=== PATIENT | male | born 2005 | race Caucasian/White ===

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

== ENCOUNTER 2025-04-29 22:34 | Emergency (ER) | payer SELFPAY ==
[2025-04-29 22:34] VITALS: BP 117/73; PULSE 83; RESP 15; TEMP 36.2; O2SAT 100; BMI 20.1
--- NOTE | 2025-04-29 23:39 | ED.VIS.GI ---
HPI HPI - GI History of Present Illness Chief Complaint: Abd Pain Informant: patient Abdominal Pain/Flank Pain Onset: Yesterday Context: Gradual Onset Timing: Intermittent Quality: Cramping Location: Diffuse Worsened by: - (Worse in the morning) Relieved by: - (Drinking coconut water) Nausea/Vomiting/Emesis GI Symptom: Positive for Nausea; Negative for Vomiting Diarrhea/Melena/Hematochezia GI Symptom: Positive for Diarrhea; Negative for Melena or Hematochezia Stool Quality: Positive for Watery Associated Symptoms Associated Symptoms: Negative for Dysuria, Frequency or Hematuria Narrative Narrative: Patient presents with abdominal pain that began yesterday. Patient states it is worse when he wakes up in the morning. Patient describes his pain as cramping. Patient states it is diffuse across his entire abdomen. Patient admits to some nausea but denies any vomiting. Patient admits to some diarrhea. Patient states it is watery. Patient denies any melena or hematochezia. Patient denies any urinary complaints. Patient admits to some subjective fevers but denies any chills. Patient states he came to the emergency department earlier today for this. Patient states he left without being seen because it was too busy. [facility] Medical History Depression Home Medications ?Medication ?Instructions ?Recorded ?Last Taken ?Type ondansetron 4 mg disintegrating 4 mg PO Q8H PRN PRN Nausea #10 tabs 04/30/25 Unknown Rx tablet Allergy/AdvReac Type Severity Reaction Status Date / Time No Known Allergies Allergy Verified 04/29/25 22:34 Surgical History no surgical history no surgical history Social History Smoking Status: Current every day smoker tobacco type: cigarettes and e-cigarettes ROS ROS ED Constitutional Constitutional ED: Reports fever(s) and subjective; Denies chills Eyes Eyes: Denies blurry vision or change in vision ENT ENT ED: Denies rhinorrhea or sore throat Cardiovascular Cardiovascular: Denies chest pain or palpitations Respiratory/Chest Respiratory/Chest: Denies cough or dyspnea Gastrointestinal Gastrointestinal: Reports abdominal pain, diarrhea and nausea; Denies melena or vomiting Genitourinary Genitourinary ED: Denies dysuria or hematuria Musculoskeletal Musculoskeletal: Denies back pain or neck pain Integumentary Denies abscess or rash Neurologic Neurologic: Reports headache(s); Denies weakness Allergic/Immunologic Allergic/Immunologic ED: Denies mouth swelling or urticaria EXAM Physical Exam Const Vital Signs: 04/29/25 22:34 Temperature 97.2 F L Temperature Source Temporal Pulse Rate 83 Respiratory Rate 15 Blood Pressure 117/73 Blood Pressure Mean 87 Pulse Ox 100 Oxygen Delivery Method Room Air Positive well nourished and well developed General Appearance ED: well developed and NAD Neck supple and no JVD Resp normal respiratory effort and clear to auscultation bilaterally Cardio regular rate and regular rhythm GI non-distended and no masses Palpation: soft and tender epigastric, LLQ, RLQ, LUQ, RUQ, periumbilical and suprapubic Neuro CN's II-XII intact bilaterally, moves all extremities and no sensory deficits noted Sensorium / Orientation: alert Motor Exam: strength 5/5 throughout Psych mental status grossly normal MDM MDM MDM Narrative Medical decision making narrative: Differential diagnosis gastroenteritis, viral illness, electrolyte abnormality, dehydration, and urinary tract infection. CBC will be obtained to assess for leukocytosis and anemia. Basic metabolic profile will be obtained to assess for electrolyte abnormality renal function. Urinalysis will be obtained to assess for urinary tract infection and hematuria. Lab Data Attestation: I reviewed the patient's lab results. Lab results narrative: CBC was reviewed and was within normal limits. Basic metabolic profile was reviewed and was within normal limits. Urinalysis was reviewed. There is no evidence of urinary tract infection or hematuria. Labs: Laboratory Results - last 24 hr 04/30/25 04/30/25 00:00 00:06 WBC 5.8 RBC 5.14 Hgb 14.5 Hct 43.2 MCV 84.0 MCH 28.2 MCHC 33.6 RDW Std Deviation 38.5 RDW Coeff of Renae 12.5 Plt Count 170 MPV 10.3 Immature Gran % (Auto) 0.300 Neut % (Auto) 41.3 L Lymph % (Auto) 38.8 Forrest % (Auto) 14.2 H Eos % (Auto) 4.7 Baso % (Auto) 0.7 Absolute Neuts (auto) 2.4 Absolute Lymphs (auto) 2.24 Nucleated RBC % 0 Sodium 139 Potassium 3.9 Chloride 105 Carbon Dioxide 24.3 Anion Gap 10 BUN 12 Creatinine 1.00 Estim Creat Clear Calc 110.46 Est GFR (MDRD) Non-Af 109 BUN/Creatinine Ratio 12.2 Glucose 86 Calcium 9.2 Urine Color Yellow Urine Clarity Clear Urine pH 6.0 Ur Specific [place] 1.020 Urine Protein 15 H Urine Glucose (UA) Normal Urine Ketones Negative Urine Occult Blood 10 H Urine Nitrite Negative Urine Bilirubin Negative Urine Urobilinogen Normal Ur Leukocyte Esterase 25 H Urine RBC 0-5 SEEN Urine WBC 0-5 SEEN Ur Squamous Epith Cells 0-5 SEEN Urine Bacteria 2+ Urine Mucus 1+ Treatment and Re-Evaluation :: Patient was given IV fluids and Zofran. Patient is feeling better on reevaluation. Patient was advised of his findings. Patient was advised that this is most likely a viral illness. Patient was instructed to start with liquid diet and advance as tolerated. Patient was instructed to follow-up with his primary care physician in 5 to 7 days. Patient was instructed to return if worse in any way. Patient understood and was agreeable with the plan. All questions were answered. Discharge Plan Triage Chief Complaint: Abd Pain ED Provider: Myles Todd Dx/Rx/DC Orders Clinical Impression: Abdominal pain, Nausea, Diarrhea Instructions: ED Abdominal Pain Unkn Cause Male... Prescriptions: New ondansetron 4 mg tablet,disintegrating 4 mg PO Q8H PRN PRN (Reason: Nausea) Qty: 10 0RF Primary Care Provider: Care Physician,No Primary Referrals: Care Physician,No Primary [Primary Care Provider] - Vincent Milner, [employer] [[facility]] - 5-7 Days Print Language: Micronesian Disposition Disposition: Home, Self Care
[2025-04-30] MEDS: 0.9% Normal Saline (1000mL) 1,000 ML 999 ML IV (00:05)
[2025-04-30] MEDS: Ondansetron 4 MG/2 ML Vial IV (00:05)
[2025-04-30 00:16] LABS: Absolute Lymphocyte Count 2.24 X10^3/uL (0.83-4.51); Absolute Neutrophil Count 2.4 X10^3/uL (2.0-7.7); Basophil# 0.04 X10^3/uL; Basophil% 0.7 % (0-1); Eosinophil# 0.27 X10^3/uL; Eosinophils% 4.7 % (0-5); Hematocrit 43.2 % (40-54); Hemoglobin 14.5 g/dL (13.0-16.5); Lymphocyte # 2.24 X10^3/ul (0.83-4.51); Lymphocyte % 38.8 % (19-41); Mean Corp Hgb Conc 33.6 g/dL (32-36); Mean Corpuscular Hgb 28.2 pg (27.0-32.0); Mean Platelet Vol. 10.3 fl (6.2-12.0); Monocyte# 0.82 X10^3/uL; Monocyte% 14.2 % (0-10); NRBC Flagged by Analyzer 0 % (0-5); Neutrophil # 2.38 X10^3/uL (2.7-7.7); Neutrophil % 41.3 % (47-70); Platelet Count 170 K/mm3 (150-450); RBC Distribution Width CV 12.5 % (11.6-14.6); RBC Distribution Width SD 38.5 fl (35.1-43.9); Red Blood Count 5.14 M/mm3 (4.6-6.2); White Blood Count 5.8 K/mm3 (4.4-11.0)
--- OUTSIDE RECORDS SUMMARY | 2025-04-30 00:18 | XMS RPT_ITS | CCD ---
Author Organization [facility] PACKING ROOM SUPERVISOR [facility] Medications Current Medications Medication Drug Class(es) Dates Sig (Normalized) Sig (Original) amoxicillin 875 mg / clavulanate 125 mg oral tablet (1 source) Penicillin-class Antibacterial Start: 03-20-2022 take 1 tablet by mouth twice daily Amoxicillin-Pot Clavulanate Active 1 TABLET PO TWICE A DAY March 20, 2022 6:05am Problems Problem Classification Problem Date Documented Da te Episodic/Chronic Other upper respiratory infections (1 source) Pain in throat; Translations: [Acute pharyngitis, unspecified] Episodic Pleurisy; pneumothorax; pulmonary collapse (1 source) Mediastinal emphysema; 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] Episodic Residual codes; unclassified (1 source) Left against medical advice; Translations: [Procedure and treatment not carried out because of patient's decision for other reasons] Episodic Suicide and intentional self-inflicted injury (1 source) Suicidal thoughts; Translations: [Suicidal ideations] Episodic Results Test Name Value Interpretation Reference Range Facility Absolute lymphocyte counton 03-20-2022 Lymphocytes Auto (Unsp spec) [#/Vol] 2.51 10*3/uL 0.83-4.51 [facility] Work Phone: Basic Metabolic Profile (BMP )on 03-20-2022 BUN/CRE 13.1 RATIO Normal 10-20 [facility] Comment on above: Performed By: #### L 500.2500, L100.0100 #### [facility] [address] [place], [address] CA,Total 9.2 mg/dL Normal 8.5-10.1 [facility] Comment on above: Performed By: #### L 500.2500, L100.0100 #### [facility] [address] [place], [address] Chloride [Moles/Vol] 109 mmol/L High 98-107 [facility] Comment on above: Performed By: #### L 500.2500, L100.0100 #### [facility] [address] [place], [address] CO2 [Moles/Vol] 28.0 mmol/L Normal 21.0-32.0 [facility] Comment on above: Performed By: #### L 500.2500, L100.0100 #### [facility] [address] [place], [address] Creatinine [Mass/Vol] 1.07 mg/dL Normal 0.70-1.30 [facility] Comment on above: Result Comment: The validity of the calculated GFR GFRAA in patients over 70 years has not been determined. Clinical correlation is essential. Performed By: #### L 500.2500, L100.0100 #### [facility] [address] [place], [address] ECRCL 99.11 ml/min Normal [facility] Comment on above: Performed By: #### L 500.2500, L100.0100 #### [facility] [address] [place], [address] EST GFR - AA 114 mL/min Normal >60 [facility] Comment on above: Result Comment: Afri can Somali GFR Calc Performed By: #### L 500.2500, L100.0100 #### [facility] [address] [place], [address] GAP 4 Low 5-15 [facility] Comment on above: Performed By: #### L 500.2500, L100.0100 #### [facility] [address] [place], [address] GFR/1.73 sq M.predicted among non-blacks MDRD (S/P/Bld) [Vol rate/Area] 95 mL/min/{1.73_m2} Normal >60 [facility] Comment on above: Result Comment: Non- GFR Calc Performed By: #### L 500.2500, L100.0100 #### [facility] [address] [place], [address] Glucose [Mass/Vol] 92 mg/dL Normal 74-106 [facility] Comment on above: Performed By: #### L 500.2500, L100.0100 #### [facility] [address] [place], [address] Potassium [Moles/Vol] 3.7 mmol/L Normal 3.5-5.1 [facility] Comment on above: Performed By: #### L 500.2500, L100.0100 #### [facility] [address] [place], [address] Sodium [Moles/Vol] 141 mmol/L Normal 136-145 [facility] Comment on above: Performed By: #### L 500.2500, L100.0100 #### [facility] [address] [place], [address] Urea nitrogen [Mass/Vol] 14 mg/dL Normal 7-18 [facility] Comment on above: Performed By: #### L 500.2500, L100.0100 #### [facility] [address] [place], [address] Basophil percentageon 2021 Basophils/100 WBC (Bld) 0.2 % 0-1 [facility] Work Phone: Chloride [Moles/Vol] 109 mmol/L 98-107 [facility] Work Phone: Eosinophils/100 WBC (Bld) 1.0 % 0-5 [facility] Work Phone: Glucose [Mass/Vol] 92 mg/dL 74-106 [facility] Work Phone: Neutrophils (Bld) [#/Vol] 8.3 10*3/uL 2.0-7.7 [facility] Work Phone: [phone] Neutrophils/100 WBC (Bld) 68.1 % 47-70 [facility] Work Phone: [phone] Potassium [Moles/Vol] 3.7 mmol/L 3.5-5.1 [facility] Work Phone: [phone] Sodium [Moles/Vol] 141 mmol/L 136-145 [facility] Work Phone: [phone] WBC (Bld) [#/Vol] 12.2 10*3/uL 4.4-11.0 [facility] Work Phone: Blood erythrocytes count (nu mber/volume)on 03-20-2022 RBC (Bld) [#/Vol] 4.68 10*6/uL 4.6-6.2 [facility] Work Phone: Blood hemoglobin measurement (mass/volume)on 03-20-2022 Hemoglobin (Bld) [Mass/Vol] 13.7 g/dL 13.0-16.5 [facility] Work Phone: [phone] Blood lymphocytes/100 leukoc yteson 03-20-2022 Lymphocytes/100 WBC (Bld) 20.5 % 19-41 [facility] Work Phone: [phone] Blood monocytes/100 leukocyt eson 03-20-2022 Monocytes/100 WBC (Bld) 9.9 % 0-10 [facility] Work Phone: [phone] Blood platelet mean volumeon 03-20-2022 Platelet mean volume (Bld) [Entitic vol] 10.0 fL 6.2-12.0 [facility] Work Phone: CBC W/Diff, Automatedon 03-06 Absolute Lymph 2.51 X10 3/uL Normal 0.83-4.51 [facility] Comment on above: Performed By: #### L 500.2500, L100.0100 #### [facility] [address] [place], [address] Absolute Neut 8.3 X10 3/uL High 2.0-7.7 [facility] Comment on above: Performed By: #### L 500.2500, L100.0100 #### [facility] [address] [place], [address] Basophils/100 WBC (Bld) 0.2 % Normal 0-1 [facility] Comment on above: Performed By: #### L 500.2500, L100.0100 #### [facility] [address] [place], [address] Eosinophils/100 WBC (Bld) 1.0 % Normal 0-5 [facility] Comment on above: Performed By: #### L 500.2500, L100.0100 #### [facility] [address] [place], [address] Erythrocyte distribution width (RBC) [Ratio] 12.2 % Normal 11.6-14.6 [facility] Comment on above: Performed By: #### L 500.2500, L100.0100 #### [facility] [address] [place], [address] Hematocrit (Bld) [Volume fraction] 40.7 % Normal 40-54 [facility] Comment on above: Performed By: #### L 500.2500, L100.0100 #### [facility] [address] [place], [address] Hemoglobin (Bld) [Mass/Vol] 13.7 g/dL Normal 13.0-16.5 [facility] Comment on above: Performed By: #### L 500.2500, L100.0100 #### [facility] [address] [place], [address] IG% 0.300 Normal 0.0-0.9 [facility] Comment on above: Result Comment: IG% - Immature Granulocytes (promyelocytes, myelocytes and metamyelocytes) > 1% indicates that a LEFT SHIFT is Present. Performed By: #### L 500.2500, L100.0100 #### [facility] [address] [place], [address] Lymphocytes/100 WBC (Bld) 20.5 % Normal 19-41 [facility] Comment on above: Performed By: #### L 500.2500, L100.0100 #### [facility] [address] [place], [address] MCH (RBC) [Entitic mass] 29.3 pg Normal 27.0-32.0 [facility] Comment on above: Performed By: #### L 500.2500, L100.0100 #### [facility] [address] [place], [address] MCHC (RBC) [Mass/Vol] 33.7 g/dL Normal 32-36 [facility] Comment on above: Performed By: #### L 500.2500, L100.0100 #### [facility] [address] [place], [address] MCV (RBC) [Entitic vol] 87.0 fL Normal 80-94 [facility] Comment on above: Performed By: #### L 500.2500, L100.0100 #### [facility] [address] [place], [address] Monocytes/100 WBC (Bld) 9.9 % Normal 0-10 [facility] Comment on above: Performed By: #### L 500.2500, L100.0100 #### [facility] [address] [place], [address] Neutrophils/100 WBC (Bld) 68.1 % Normal 47-70 [facility] Comment on above: Performed By: #### L 500.2500, L100.0100 #### [facility] [address] [place], [address] Nucleated RBC (Bld) [#/Vol] 0 10*3/uL Normal 0-5 [facility] Comment on above: Performed By: #### L 500.2500, L100.0100 #### [facility] [address] [place], [address] Platelet mean volume (Bld) [Entitic vol] 10.0 fL Normal 6.2-12.0 [facility] Comment on above: Performed By: #### L 500.2500, L100.0100 #### [facility] [address] [place], [address] Platelets (Bld) [#/Vol] 196 10*3/uL Normal 150-450 [facility] Comment on above: Performed By: #### L 500.2500, L100.0100 #### [facility] [address] [place], [address] RBC (Bld) [#/Vol] 4.68 10*6/uL Normal 4.6-6.2 [facility] Comment on above: Performed By: #### L 500.2500, L100.0100 #### [facility] [address] [place], [address] RDW SD 38.7 fl Normal 35.1-43.9 [facility] Comment on above: Performed By: #### L 500.2500, L100.0100 #### [facility] [address] [place], [address] WBC (Bld) [#/Vol] 12.2 10*3/uL High 4.4-11.0 [facility] Comment on above: Performed By: #### L 500.2500, L100.0100 #### [facility] [address] [place], [address] Determination of erythrocyte mean corpuscular volume (MCV)on 03-20-2022 MCV (RBC) [Entitic vol] 87.0 fL 80-94 [facility] Work Phone: Emergency Department Summary on 03-20-2022 Emergency Department Summary [facility] Medical Records Department [address] [place] [address] Emergency Department Summary 03/20/22 MR#: [id number] Acct: [id number] Name: KAMALJIT CORREA Rep #: [id number] : 2005 17 From: Miguelito Stringer MD PCP: Care Physician,No Primary Status:REG ER Location: ED HPI History of Present Illness Chief Complaint: Sore Throat Informant: patient Narrative Narrative: Patient complains of a sore throat for couple hours. This occurred a little bit after eating some pork. That he does not remember anything causing problems while he ate. He is able to swallow. He has no trouble breathing. He had no fevers chills sweats. He took a picture in his throat and he thought he saw something that was different but he cannot explain it. He wanted to come in to make sure he did not do damage to himself. Right putting his finger in his throat to get hold of what ever he saw or felt. He did then try to force himself to gag and vomit to bring up what ever might have been there. He has no medical problems. [facility] Medical History Depression Home Medications amoxicillin-pot clavulanate 1 tab PO BID #20 tab 03/20/22 [Rx Last Taken Unknown] Allergy/AdvReac Type Severity Reaction Status Date / Time No Known Allergies Allergy Verified 03/20/22 00:58 Social History Smoking Status: Current every day smoker tobacco type: cigarettes ROS ROS ED Constitutional Constitutional ED: Denies chills or fever(s) ENT ENT ED: Reports sore throat; Denies ear pain or rhinorrhea Cardiovascular Cardiovascular: Denies chest pain or palpitations Respiratory/Chest Respiratory/Chest: Denies cough or dyspnea Gastrointestinal Gastrointestinal: Denies nausea or vomiting Genitourinary Genitourinary ED: Denies dysuria Musculoskeletal Musculoskeletal: Reports other Details: Sore throat but no real neck pain. ; Denies back pain or neck pain Integumentary Denies rash Endocrine Endocrinology: Denies polydipsia or polyuria Allergic/Immunologic Allergic/Immunologic ED: Denies urticaria EXAM Physical Exam Const Vital Signs: 03/20/22 00:55 03/20/22 05:59 Temperature 97.9 F Temperature Source Temporal Pulse Rate 84 60 Respiratory Rate 18 18 Blood Pressure 147/67 H 123/61 H Blood Pressure Mean 93 81 Pulse Ox 96 99 Oxygen Delivery Method Room Air Positive well nourished and well developed Constitutional Narrative: Patient sitting in the bed texting on his phone. He looks very comfortable. Breathing is easy and unlabored. General Appearance ED: well developed and NAD HEENT HEENT Narrative: Voice is normal. Swallowing mechanism is normal. Patient is opens very widely. I can see a tonsil lift in the upper right tonsil. I am not able to remove this with a Q-tip easily. There is no exudate. I do have the ability to visualize his epiglottis but it looks normal. I see no foreign body anywhere. There is no bleeding. No swelling. No asymmetry. Negative for trauma Eyes PERRL Neck no lymphadenopathy, supple and no JVD Neck Narrative: No tenderness with palpation around the neck. Chest Wall inspection of chest normal Resp normal respiratory effort and clear to auscultation bilaterally GI normal to inspection, nondistended, normoactive bowel sounds and non-tender Palpation: soft Neuro oriented x3 Sensorium / Orientation: alert Psych mental status grossly normal Skin no rashes or lesions noted MDM MDM MDM Narrative Medical decision making narrative: Patient's x-ray shows prevertebral soft tissue air. Patient denies any forceful vomiting retching or any foreign body in his mouth. He he does vape on occasion. He denies trauma. He states he is feeling a little better. But with this finding we did do further evaluation. He had a white count of about 12.2. Remainder of labs show no marked abnormalities. CT scan did show some extensive soft tissue air in the prevertebral deeper aspirates from retropharyngeal down to the upper mediastinum. It is unclear the exact origin of this. He does not present the typical clinical picture of Boerhaave syndrome. However we did treat with antibiotics. I explained the findings to the patient. I did talk to her water service supervisor. We agree that this patient may need to successfully be observed but would likely need further esophageal studies and potential access to CT surgery. I explained this to the patient. I then called [facility] and gave them the information. We are waiting the calls back. I asked planed the symptoms in more detail to the patient and why we were waiting. He was okay with this plan. A couple hours into this, he then told the nurse that he cannot be transferred cecile (more content not included)... Normal [facility] Hematocrit Auto (Bld) [Volum e fraction]on 03-20-2022 Hematocrit (Bld) [Volume fraction] 40.7 % 40-54 [facility] Work Phone: Laboratory - Chemistry and C hemistry - challengeon 03-20-2022 CO2 [Moles/Vol] 28.0 mmol/L 21.0-32.0 [facility] Work Phone: Urea nitrogen/Creatinin e [Mass ratio] 13.1 mg/mg 10-20 [facility] Work Phone: Laboratory - Hematology and Cell countson 03-20-2022 Erythrocyte distribution width (RBC) [Entitic vol] 38.7 fL 35.1-43.9 [facility] Work Phone: Erythrocyte distribution width (RBC) [Ratio] 12.2 % 11.6-14.6 [facility] Work Phone: Immature granulocytes/100 WBC (Bld) 0.300 % 0.0-0.9 [facility] Work Phone: Comment on above: IG% - Immature Granu locytes (promyelocytes, myelocytes and metamyelocytes) > 1% indicates that a LEFT SHIFT is Present. MCH (RBC) [Entitic mass] 29.3 pg 27.0-32.0 [facility] Work Phone: Nucleated RBC/100 WBC (Bld) [Ratio] 0 % 0-5 [facility] Work Phone: MCHC Auto (RBC) [Mass/Vol]on 03-20-2022 MCHC (RBC) [Mass/Vol] 33.7 g/dL 32-36 [facility] Work Phone: Neck for Soft Tissueon 03-20 Neck for Soft Tissue [facility] Services [address] [place] [address] Neck for Soft Tissue MR#: [id number] Acct: [id number] Name: KAMALJIT CORREA Rep #: [id number] : 2005 M 17 From: Perry Carlson MD PCP: Care Physician,No Primary Status: REG ER Study: Neck for Soft Tissue Date of Exam: 03/20/22 Exam# [id number] Ordering Dr: Miguelito Stringer MD STUDY: X-RAY - SOFT TISSUE NECK REASON FOR EXAM: Male, 17 years old. sore throat TECHNIQUE: 2 view(s) of the neck were obtained. COMPARISON: None. FINDINGS: Please see the impression. RAD/Neck for Soft Tissue IMPRESSION: Prevertebral soft tissue air/gas. In the absence of history of recent trauma, the possibility of an anaerobic infections should be considered. No radiopaque foreign body. Intact cervical vertebrae. Electronically Signed: Perry Carlson MD at 1:46 EDT Reading Location ID and State: [facility] / [place] Tel , Service support , CC: Dr. Miguelito Stringer MD; No Primary Care Physician Assistant Front End Manager: Signed Normal [facility] No Panel Informationon 03-20 Estimated Creatinine Clearance Calc 99.11 ml/min [facility] Work Phone: Estimated GFR (MDRD) Amer 114 mL/min >60 [facility] Work Phone: Comment on above: GFR Calc Estimated GFR (MDRD) Non-Af Amer 95 mL/min >60 [facility] Work Phone: Comment on above: Non- GFR Calc Platelets bldon 03-20-2022 Platelets (Bld) [#/Vol] 196 10*3/uL 150-450 [facility] Work Phone: Serum or plasma calcium leticia urement (mass/volume)on 03-20-2022 Calcium [Mass/Vol] 9.2 mg/dL 8.5-10.1 [facility] Work Phone: Serum or plasma creatinine m easurement (mass/volume)on 03-20-2022 Creatinine [Mass/Vol] 1.07 mg/dL 0.70-1.30 [facility] Work Phone: Comment on above: The validity of the calculated GFR & GFRAA in patients over 70 years has not been determined. Clinical correlation is essential. Serum or plasma urea nitroge n measurement (mass/volume)on 03-20-2022 Urea nitrogen [Mass/Vol] 14 mg/dL 7-18 [facility] Work Phone: Soft Tissue Neck WITH Contra ston 03-20-2022 Soft Tissue Neck WITH Contrast [facility] Services [address] [place] [address] Soft Tissue Neck WITH Contrast MR#: [id number] Acct: [id number] Name: KAMALJIT CORREA Rep #: [id number] : 2005 M 17 From: Perry Carlson MD PCP: Care Physician,No Primary Status: REG ER Study: Soft Tissue Neck WITH Contrast Date of Exam: 0 03/20/22 Exam# [id number] Ordering Dr: Miguelito Stringer MD STUDY: CT SOFT TISSUE NECK WITH CONTRAST REASON FOR EXAM: Male, 17 years old. pain RADIATION DOSAGE (If Supplied By Facility): CTDIvol = ( 12.72 ) mGy, DLP = ( 416.17 ) mGycm TECHNIQUE: The patient was scanned in a multi-detector CT scanner. High resolution transaxial imaging was performed following intravenous administration of IV 75mL Isovue-300. Sagittal and coronal images were reconstructed. Individualized dose optimization techniques were used for this CT. COMPARISON: None. FINDINGS: Visualized brain parenchyma is unremarkable. The bilateral globes are intact. Polyps versus retention cysts noted in the bilateral maxillary sinuses. Mild mucoperiosteal thickening of the bilateral ethmoid air cells is seen. The bilateral parotid and submandibular glands are intact. The thyroid is homogeneous. No cervical adenopathy is seen. There is extensive deep soft tissue emphysema in the retropharyngeal space and extending to the upper mediastinum. The possibility of esophageal perforation cannot be excluded. Upper lungs are clear. There is no apical pneumothorax. The bones are intact. CT/Soft Tissue Neck WITH Contrast IMPRESSION: Extensive deep soft tissue emphysema in the retropharyngeal space and extending to the upper mediastinum. The possibility of esophageal perforation cannot be excluded. Esophagram may be performed if clinically indicated. Electronically Signed: Perry Carlson MD at 3:00 EDT Reading Location ID and State: [facility] / [place] Tel , Service support , CC: Dr. Miguelito Stringer MD; No Primary Care Physician Assistant Front End Manager: Signed Normal [facility] Thin prep Papanicolaou smear with manual screeningon 03-20-2022 Thin prep Papanicolaou smear with manual screening 03-20 [facility] Work Phone: 12 Lead EKGon 03-29-2021 12 Lead EKG [facility] Services [address] [place] [address] 12 Lead EKG 03/29/21 1141 MR#: [id number] Acct: [id number] Name: KAMALJIT CORREA Rep #: [id number] : 2005 16 From: Thomas De Oliveira MD Attending Dr: Status: DEP ER Ordering Dr: Renan David MD Date: 03/29/21 Location: ED Sex: M C Admitted: Test Reason : Blood Pressure : / mmHG Vent. Rate : 046 BPM Atrial Rate : 046 BPM P-R Int : 134 ms QRS Dur : 102 ms QT Int : 456 ms P-R-T Axes : 042 067 049 degrees QTc Int : 399 ms Sinus bradycardia RSR' or QR pattern in V1 suggests right ventricular conduction delay Borderline ECG Confirmed by ALVINO COKER, THOMAS ([id number]), graphics editor FAYE CALDWELL ([id number]) on 03/31/2021 9:36:36 AM Referred By: LUIS F Confirmed By:THOMAS DE OLIVEIRA MD 03/31/21 0936 Date Thomas De Oliveira MD CC: No Primary Care Physician; Dr. Renan David MD Signed Normal [facility] Alcohol, Blood (Medical)-Ser umon 03-29-2021 SERUM ETOH < 3.0 Normal [facility] Comment on above: Result Comment: The serum:whole blood ethanol ratio is approximately 1.14 and varies slightly with hematocrit. Medical Alcohol reference interval and critical value in non-tolerant individuals; 50 - 100 Impairment 100 Intoxication 100 - 250 Severe Poisoning 250 - 400 Deep/possible fatal coma Performed By: #### L 501.9100, L505.5000, L500.2500, L100.0100 #### [facility] [address] [place], [place], [id number] Basic Metabolic Profile (BMP )on 03-29-2021 BUN/CRE 14.4 RATIO Normal 10-20 [facility] Comment on above: Performed By: #### L 501.9100, L505.5000, L500.2500, L100.0100 ####[facility] [id number] [place], [address] CA,Total 9.0 mg/dL Normal 8.5-10.1 [facility] Comment on above: Performed By: #### L 501.9100, L505.5000, L500.2500, L100.0100 ####[facility] [id number] [place], [address] Chloride [Moles/Vol] 109 mmol/L High 98-107 [facility] Comment on above: Performed By: #### L 501.9100, L505.5000, L500.2500, L100.0100 ####[facility] [id number] [place], [address] CO2 [Moles/Vol] 27.0 mmol/L Normal 21.0-32.0 [facility] Comment on above: Performed By: #### L 501.9100, L505.5000, L500.2500, L100.0100 ####[facility] [id number] [place], [address] Creatinine [Mass/Vol] 1.04 mg/dL Normal 0.70-1.30 [facility] Comment on above: Result Comment: The validity of the calculated GFR GFRAA in patients over 70 years has not been determined. Clinical correlation is essential. Performed By: #### L 501.9100, L505.5000, L500.2500, L100.0100 ####[facility] [id number] [place], [address] ECRCL 107.16 ml/min Normal [facility] Comment on above: Performed By: #### L 501.9100, L505.5000, L500.2500, L100.0100 ####[facility] [address] [place], [address] EST GFR - AA 120 mL/min Normal >60 [facility] Comment on above: Result Comment: Afri can Somali GFR Calc Performed By: #### L 501.9100, L505.5000, L500.2500, L100.0100 ####[facility] [address] [place], [address] GAP 5 Normal 5-15 [facility] Comment on above: Performed By: #### L 501.9100, L505.5000, L500.2500, L100.0100 ####[facility] [address] [place], [address] GFR/1.73 sq M.predicted among non-blacks MDRD (S/P/Bld) [Vol rate/Area] 99 mL/min/{1.73_m2} Normal >60 [facility] Comment on above: Result Comment: Non- GFR Calc Performed By: #### L 501.9100, L505.5000, L500.2500, L100.0100 ####[facility] [id number] [place], [address] Glucose [Mass/Vol] 102 mg/dL Normal 74-106 [facility] Comment on above: Result Comment: Fast ing Glucose result from 100 to 125 mg/dL suggests IMPAIRED HOMEOSTASIS per A.D.A. criteria. Please note revised GLUCOSE reference range effective 2017. Performed By: #### L 501.9100, L505.5000, L500.2500, L100.0100 ####[facility] [id number] [place], [address] Potassium [Moles/Vol] 3.9 mmol/L Normal 3.5-5.1 [facility] Comment on above: Performed By: #### L 501.9100, L505.5000, L500.2500, L100.0100 ####[facility] [address] [place], [address] Sodium [Moles/Vol] 141 mmol/L Normal 136-145 [facility] Comment on above: Performed By: #### L 501.9100, L505.5000, L500.2500, L100.0100 ####[facility] [address] [place], [address] Urea nitrogen [Mass/Vol] 15 mg/dL Normal 7-18 [facility] Comment on above: Performed By: #### L 501.9100, L505.5000, L500.2500, L100.0100 ####[facility] [id number] [place], [address] CBC W/Diff, Automatedon 05-2 Absolute Lymph 2.26 X10 3/uL Normal 0.83-4.51 [facility] Comment on above: Performed By: #### L 501.9100, L505.5000, L500.2500, L100.0100 #### [facility] [address] [place], [address] Absolute Neut 2.3 X10 3/uL Normal 2.0-7.7 [facility] Comment on above: Performed By: #### L 501.9100, L505.5000, L500.2500, L100.0100 #### [facility] [address] [place], [address] Basophils/100 WBC (Bld) 0.7 % Normal 0-1 [facility] Comment on above: Performed By: #### L 501.9100, L505.5000, L500.2500, L100.0100 #### [facility] [address] [place], [address] Eosinophils/100 WBC (Bld) 5.7 % High 0-3 [facility] Comment on above: Performed By: #### L 501.9100, L505.5000, L500.2500, L100.0100 #### [facility] [address] [place], [address] Erythrocyte distribution width (RBC) [Ratio] 12.1 % Normal 11.6-14.6 [facility] Comment on above: Performed By: #### L 501.9100, L505.5000, L500.2500, L100.0100 #### [facility] [address] [place], [address] Hematocrit (Bld) [Volume fraction] 42.1 % Normal 36-47 [facility] Comment on above: Performed By: #### L 501.9100, L505.5000, L500.2500, L100.0100 #### [facility] [address] [place], [address] Hemoglobin (Bld) [Mass/Vol] 14.1 g/dL Normal 13.0-16.5 [facility] Comment on above: Performed By: #### L 501.9100, L505.5000, L500.2500, L100.0100 #### [facility] [address] [place], [address] IG% 0.200 Normal 0.0-0.9 [facility] Comment on above: Result Comment: IG% - Immature Granulocytes (promyelocytes, myelocytes and metamyelocytes) > 1% indicates that a LEFT SHIFT is Present. Performed By: #### L 501.9100, L505.5000, L500.2500, L100.0100 #### [facility] [address] [place], [address] Lymphocytes/100 WBC (Bld) 40.0 % Normal 25-45 [facility] Comment on above: Performed By: #### L 501.9100, L505.5000, L500.2500, L100.0100 #### [facility] [address] [place], [address] MCH (RBC) [Entitic mass] 29.9 pg Normal 25.0-35.0 [facility] Comment on above: Performed By: #### L 501.9100, L505.5000, L500.2500, L100.0100 #### [facility] [address] [place], [address] MCHC (RBC) [Mass/Vol] 33.5 g/dL Normal 32-36 [facility] Comment on above: Performed By: #### L 501.9100, L505.5000, L500.2500, L100.0100 #### [facility] [address] [place], [address] MCV (RBC) [Entitic vol] 89.4 fL Normal 78-96 [facility] Comment on above: Performed By: #### L 501.9100, L505.5000, L500.2500, L100.0100 #### [facility] [address] [place], [address] Monocytes/100 WBC (Bld) 12.4 % High 3-6 [facility] Comment on above: Performed By: #### L 501.9100, L505.5000, L500.2500, L100.0100 #### [facility] [address] [place], [address] Neutrophils/100 WBC (Bld) 41.0 % Normal 34-64 [facility] Comment on above: Performed By: #### L 501.9100, L505.5000, L500.2500, L100.0100 #### [facility] [address] [place], [address] Nucleated RBC (Bld) [#/Vol] 0 10*3/uL Normal 0-5 [facility] Comment on above: Performed By: #### L 501.9100, L505.5000, L500.2500, L100.0100 #### [facility] [address] [place], [address] Platelet mean volume (Bld) [Entitic vol] 10.3 fL Normal 6.2-12.0 [facility] Comment on above: Performed By: #### L 501.9100, L505.5000, L500.2500, L100.0100 #### [facility] [address] [place], [address] Platelets (Bld) [#/Vol] 196 10*3/uL Normal 150-450 [facility] Comment on above: Performed By: #### L 501.9100, L505.5000, L500.2500, L100.0100 #### [facility] [address] [place], [address] RBC (Bld) [#/Vol] 4.71 10*6/uL Normal 4.5-5.1 [facility] Comment on above: Performed By: #### L 501.9100, L505.5000, L500.2500, L100.0100 #### [facility] [address] [place], [address] RDW SD 39.8 fl Normal 35.1-43.9 [facility] Comment on above: Performed By: #### L 501.9100, L505.5000, L500.2500, L100.0100 #### [facility] [address] [place], [address] WBC (Bld) [#/Vol] 5.7 10*3/uL Normal 4.5-13.0 [facility] Comment on above: Performed By: #### L 501.9100, L505.5000, L500.2500, L100.0100 #### [facility] [address] [place], [address] COVID 19 AG RAPID (RN COLLEC T)on 03-29-2021 SARS-CoV-2 (COVID-19) RNA AGUS+probe Ql (Unsp spec) *Negative results from patients with symptom onset beyond five days should be treated as presumptive and confirmed by a molecular assay if clinically necessary. Negative results should not be used as the sole basis for treatment or for patient management. COVID 19 AG RAPID (RN COLLECT) *Positive results do not differentiate between SARS-CoV and SARS-CoV-2. If differentation of the specific SARS virus is desired an additional sample and an additional order is required. COVID 19 AG RAPID (RN COLLECT) * This test has not been FDA cleared or approved; the test has been authorized by FDA under an Emergency Use Authorization (EAU) for use by laboratories certified under CLIA that meet the requirements to perform moderate, high, or waived complexity tests. COVID 19 AG RAPID (RN COLLECT) Normal Reference Range: Negative Testing performed on Audit Verifyia analyzer ELEUTERIO (lateral flow immunofluorescent assay) SARS-CoV-2 (COVID 19) Negative Normal [facility] Comment on above: Performed By: #### M 100.505 #### [facility] [address] [place], [address] Emergency Department Summary on 03-29-2021 Emergency Department Summary [facility] Medical Records Department [address] [place] [address] Emergency Department Summary 03/29/21 MR#: [id number] Acct: [id number] Name: KAMALJIT CORREA Rep #: [id number] : 2005 16 From: Renan David MD PCP: Care Physician, No Primary Status:REG ER Location: ED HPI HPI - Psych History of Present Illness Chief Complaint: Mental Health Informant: patient Narrative Narrative: Patient presents with suicidal thoughts. He states that over the past couple months he has had increasing suicidal thoughts. Has been having a lot of issues with school and with family. He has had thoughts of wanting to overdose or get into a car accident to kill himself. He has tried overdose in the past. He denies any history of any psychiatric admissions. He is on no medications currently. He does have a counselor who brought him in today. They were managing him at home over the weekend but brought him in today because of continuing suicidal thoughts. [facility] Medical History Depression Home Medications NK 03/29/21 [History Last Taken Unknown] Allergy/AdvReac Type Severity Reaction Status Date / Time No Known Allergies Allergy Verified 03/29/21 09:25 Social History Smoking Status: Current every day smoker ROS ROS ED Constitutional Constitutional ED: Denies chills or fever(s) Eyes Eyes: Denies blurry vision, change in vision or diplopia ENT ENT ED: Denies ear pain, rhinorrhea or sore throat Cardiovascular Cardiovascular: Denies chest pain or palpitations Respiratory/Chest Respiratory/Chest: Denies cough, dyspnea or sputum Gastrointestinal Gastrointestinal: Denies abdominal pain, diarrhea, nausea or vomiting Genitourinary Genitourinary ED: Denies dysuria, hematuria or urinary frequency Musculoskeletal Musculoskeletal: Denies back pain or neck pain Integumentary Denies change in pigmentation or rash Neurologic Neurologic: Denies headache(s), numbness or weakness Psychiatric Psychiatric: Reports depression and suicidal thoughts Endocrine Endocrinology: Denies polydipsia or polyuria EXAM Physical Exam Const Vital Signs: 03/29/21 09:20 Temperature 97.9 F Temperature Source Temporal Pulse Rate 58 L Respiratory Rate 156 H Blood Pressure 123/73 Blood Pressure Mean 89 Pulse Ox 99 Oxygen Delivery Method Room Air Positive well nourished and well developed General Appearance ED: well developed and NAD HEENT Reports moist mucous membranes normocephalic and atraumatic; Negative for tenderness Eyes PERRL and EOMs intact bilaterally Chest Wall Chest: Negative for tenderness Resp normal respiratory effort and clear to auscultation bilaterally Effort and Inspection: Negative for respiratory distress Cardio regular rate, regular rhythm and no murmurs Rate: regular rate Rhythm: regular rhythm GI soft to palpation, non-tender and non-distended Palpation: soft Back/Spine no thoracic nor lumbar tenderness Extremity normal to inspection and full ROM General Extremety ED: Negative for tenderness Neuro oriented x3, CN's II-XII intact bilaterally and no sensory deficits noted Sensorium / Orientation: awake and alert Motor Exam: strength 5/5 throughout Psych Psych Narrative: The patient has a flat affect. He does voice some suicidal thoughts. He also admits to depression. He does not appear to be internally stimulated. Skin no rashes or lesions noted MDM MDM MDM Narrative Medical decision making narrative: Patient had screening labs which were negative except for marijuana on his toxicology screen which she admits to. Patient was discussed with Ailyn Watters and accepted. Lab Data Labs: Laboratory Results - last 24 hr 03/29/21 03/29/21 03/29/21 09:55 09:55 09:55 WBC 5.7 RBC 4.71 Hgb 14.1 Hct 42.1 MCV 89.4 MCH 29.9 MCHC 33.5 RDW Std Deviation 39.8 RDW Coeff of Renae 12.1 Plt Count 196 MPV 10.3 Immature Gran % (Auto) 0.200 Neut % (Auto) 41.0 Lymph % (Auto) 40.0 Weber % (Auto) 12.4 H Eos % (Auto) 5.7 H Baso % (Auto) 0.7 Absolute Neuts (auto) 2.3 Absolute Lymphs (auto) 2.26 Nucleated RBC % 0 Sodium 141 Potassium 3.9 Chloride 109 H Carbon Dioxide 27.0 Anion Gap 5 BUN 15 Creatinine 1.04 Estim Creat Clear Calc 107.16 Est GFR (MDRD) Af Amer 120 Est GFR (MDRD) Non-Af 99 BUN/Creatinine Ratio 14.4 Glucose 102 Calcium 9.0 Urine Opiates Screen Urine Methadone Screen Ur Barbiturates Screen Ur Phencyclidine Scrn Ur Amphetamines Screen U Methamphetamin-MDMA U Benzodiazepines Scrn Urine Cocaine Screen U Cannabinoids Screen Ur Drug Screen Comment (more content not included)... Normal [facility] Urine Drug Screen (VISTA)on 03-29-2021 AMPHETAMINES Negative Normal <1000 ng/mL [facility] Comment on above: Performed By: #### L 501.9100, L505.5000, L500.2500, L100.0100 ####[facility] [address] [place], [address] BARBITIURATES Negative Normal < 200 ng/mL [facility] Comment on above: Performed By: #### L 501.9100, L505.5000, L500.2500, L100.0100 ####[facility] [address] [place], [address] BENZODIAZIPINE Negative Normal < 200 ng/mL [facility] Comment on above: Performed By: #### L 501.9100, L505.5000, L500.2500, L100.0100 ####[facility] [address] [place], [address] COCAINE Negative Normal < 300 ng/mL [facility] Comment on above: Performed By: #### L 501.9100, L505.5000, L500.2500, L100.0100 ####[facility] [address] [place], [address] ECSTACY Negative Normal < 500 ng/mL [facility] Comment on above: Performed By: #### L 501.9100, L505.5000, L500.2500, L100.0100 ####[facility] [address] [place], [address] METHADONE Negative Normal < 300 ng/mL [facility] Comment on above: Performed By: #### L 501.9100, L505.5000, L500.2500, L100.0100 ####[facility] [address] [place], [address] OPIATES Negative Normal < 300 ng/mL [facility] Comment on above: Performed By: #### L 501.9100, L505.5000, L500.2500, L100.0100 ####[facility] [address] [place], [address] PCP Negative Normal < 25 ng/mL [facility] Comment on above: Performed By: #### L 501.9100, L505.5000, L500.2500, L100.0100 ####[facility] [address] [place], [address] THC Positive Abnormal < 50 ng/mL [facility] Comment on above: Performed By: #### L 501.9100, L505.5000, L500.2500, L100.0100 ####[facility] [address] [place], [address] VISTA UDS PH 5 Normal [facility] Comment on above: Performed By: #### L 501.9100, L505.5000, L500.2500, L100.0100 ####[facility] [address] [place], [address] CNOVon 04-05-2018 CNOV Office Visit ([facility]) KAMALJIT CORREA ([id number]) 03 MDate Time Provider Department5/31/18 6:30 PM JUDITH MIRANDA (TATYANA) [facility] During your visit today, we recorded the following information about you: Temperature Pulse Respiration Weight 98.9 degrees 64/minute 16/minute 64.4 kgJudith Miranda APRN.CNP 04/05/2018 6:44 PM SignedASSESSMENT/PLAN:1. Acute pain of left knee - ICD9: 719.46, ICD10: M25.562-discussed RICE treatment-discussed ibuprofen use-given stretches/exercises-follow up with primary care in 2-3 weeks if no better.Judith Miranda APRN.CNP 04/05/2018 7:08 PM SignedSubjectiveHPIHPI Race Jemal Correa is a 13 year old male who presents today for CC of left kneepain. This started 2-3 weeks ago. Has tried nothing for relief. Symptoms areworsened by playing basketball. Risk factors none at this time. Deniesnumbness/tingling of left lower extremity..Patient presents with:Knee Injury: Left kneePAST MEDICAL HISTORYDiagnosis Date- bronchiolitis- Other speech disturbance- Unspecified otitis media recurrentPAST SURGICAL HISTORYProcedure Laterality Date- TYP MEMBR REP W OR W/O PATCH TympanoplastyALLERGIES Patient has no known allergies.MEDICATIONS No prescriptions on file.FAMILY HISTORYProblem Relation Age of Onset- None Father- None MotherSocial HistorySubstance Use Topics- Smoking status: Passive Smoke Exposure - Never Smoker- Smokeless tobacco: Never Used- Alcohol use Not on fileROSObjectivePulse 64, temperature 37.2 ?C (98.9 ?F), temperature source Left Tympanic,resp. rate 16, weight 64.4 kg (142 lb).Physical ExamConstitutional: He is oriented to person, place, and time and well-developed,well-nouris hed, and in no distress. Non-toxic appearance. He does not have asickly appearance. No distress.HENT:Head: Normocephalic and atraumatic.Cardiovascular: Pulses: Dorsalis pedis pulses are 2+ on the left side. Posterior tibial pulses are 2+ on the left side.Pulmonary/Chest: Effort normal. No accessory muscle usage. No respiratorydistress.Muscul oskeletal: Left knee: He exhibits normal range of motion, no swelling, no effusion,no ecchymosis, no deformity, no laceration, no erythema, normal alignment, noLCL laxity, no bony tenderness and normal meniscus. Tenderness found. Lateraljoint line tenderness noted. No medial joint line, no MCL, no LCL and nopatellar tendon tenderness noted.Neurological: He is alert and oriented to person, place, and time. Gait normal.Skin: He is not diaphoretic. ASSESSMENT/PLAN:1. Acute pain of left knee - ICD9: 719.46, ICD10: M25.562-offered xray, parent declined-discussed RICE treatment-discussed ibuprofen use-given stretches/exercises-follow up with primary care in 2-3 weeks if no better.Prescription instructions reviewed with patient as applicable. Parent advisedif symptoms do not improve or if symptoms worsen sooner, to contact the officefor further evaluation by their primary care physician. Potential red flagsymptoms discussed with the patient. Reviewed appropriate action plan to takeif red flag symptoms occur. Parent agreeable to treatment plan.Judith Miranda APRN.TATYANAReferring Provider: SELF [200]Allergies As of Date: 04/05/2018(No Known Allergies)Date Reviewed: 04/05/2018Reviewed by: Judith Miranda - Fully AssessedReason for Visit: Knee Injury [1981] Cmt: Left kneePrimary Visit Diagnosis:Acute pain of left knee [M25.562]Problem List As Of Date: 04/05/2018(None) Other instructions from your clinician: ASSESSMENT/PLAN: 1. Acute pain of left knee - ICD9: 719.46, ICD10: M25.562 -discussed RICE treatment -discussed ibuprofen use -given stretches/exercises -follow up with primary care in 2-3 weeks if no better. Status:Closed by JUDITH MIRANDA CNP on 04/05/18 [facility] PROGRESSon 04-05-2018 PROGRESS HNO ID: [id number] thor: Judith MirandaService: (none)Author Type: Nurse PractitionerType: Progress NotesFiled: 04/05/2018 7:08 PMNote Text:SubjectiveHPIHPI Race Jemal Correa is a 13 year old male who presents today for CC of leftknee pain. This started 2-3 weeks ago. Has tried nothing for relief.Symptoms are worsened by playing basketball. Risk factors none at thistime. Denies numbness/tingling of left lower extremity..Patient presents with:Knee Injury: Left kneePAST MEDICAL HISTORYDiagnosis Date- bronchiolitis- Other speech disturbance- Unspecified otitis media recurrentPAST SURGICAL HISTORYProcedure Laterality Date- TYP MEMBR REP W OR W/O PATCH TympanoplastyALLERGIES Patient has no known allergies.MEDICATIONS No prescriptions on file.FAMILY HISTORYProblem Relation Age of Onset- None Father- None MotherSocial HistorySubstance Use Topics- Smoking status: Passive Smoke Exposure - Never Smoker- Smokeless tobacco: Never Used- Alcohol use Not on fileROSObjectivePulse 64, temperature 37.2 ?C (98.9 ?F), temperature source Left Tympanic,resp. rate 16, weight 64.4 kg (142 lb).Physical ExamConstitutional: He is oriented to person, place, and time andwell-developed, well-nourished, and in no distress. Non-toxic appearance.He does not have a sickly appearance. No distress.HENT:Head: Normocephalic and atraumatic.Cardiovascular: Pulses: Dorsalis pedis pulses are 2+ on the left side. Posterior tibial pulses are 2+ on the left side.Pulmonary/Chest: Effort normal. No accessory muscle usage. No respiratorydistress.Muscul oskeletal: Left knee: He exhibits normal range of motion, no swelling, noeffusion, no ecchymosis, no deformity, no laceration, no erythema, normalalignment, no LCL laxity, no bony tenderness and normal meniscus.Tenderness found. Lateral joint line tenderness noted. No medial jointline, no MCL, no LCL and no patellar tendon tenderness noted.Neurological: He is alert and oriented to person, place, and time. Gaitnormal.Skin: He is not diaphoretic. ASSESSMENT/PLAN:1. Acute pain of left knee - ICD9: 719.46, ICD10: M25.562-offered xray, parent declined-discussed RICE treatment-discussed ibuprofen use-given stretches/exercises-follow up with primary care in 2-3 weeks if no better.Prescription instructions reviewed with patient as applicable. Parentadvised if symptoms do not improve or if symptoms worsen sooner, tocontact the office for further evaluation by their primary care physician. Potential red flag symptoms discussed with the patient. Reviewedappropriate action plan to take if red flag symptoms occur. Parentagreeable to treatment plan.Judith Miranda APRN.EMPLOYMENT INSTRUCTIONAL ASSOCIATE Normal [facility] Vital Signs Date Time Vital Sign Value Performing Clinician Cordell mtz 03-20-2022 06:35-0400 Diastolic blood pressure 61 mm[Hg] [facility] Work Phone: 03-20-2022 06:35-0400 Heart rate 60 /min [facility] Work Phone: 03-20-2022 06:35-0400 Respiratory rate 18 /min [facility] Work Phone: 03-20-2022 06:35-0400 SaO2% (BldA) [Mass fraction] 99 % [facility] Work Phone: 03-20-2022 06:35-0400 Systolic blood pressure 123 mm[Hg] [facility] Work Phone: 03-20-2022 00:55-0400 Body height 182.88 cm [facility] Work Phone: 03-20-2022 00:55-0400 Body mass index (BMI) [Ratio] 18.8 kg/m2 [facility] Work Phone: 03-20-2022 00:55-0400 Body temperature 97.9 [degF] [facility] Work Phone: 03-20-2022 00:55-0400 Body weight 63.1 kg [facility] Work Phone: Encounters Encounter Date Encounter Type Care Provider Facility Start: 03-20-2022 End: 03-20-2022 Emergency department patient visit [facility]Emergency Department Start: 04-05-2018 End: 04-06-2018 Ambulatory [facility] Procedures Date Procedure Procedure Detail Performing Clinician Start: 03-20-2022 CT of soft tissues o f neck with contrast Start: 03-20-2022 X-ray of soft tissue of neck Plan of Treatment Date Care Activity Detail Author Patient Education Chest Lung problems Phuong g Dx [facility] Work Phone: Patient referral [facility] Work Phone: Payers Date Payer Category Payer Policy ID Self-pay SELF PAY INSURANCE [id number] Unknown SELF PAY INSURANCE [id number] 00 [id number] Social History Date Type Detail Facility Start: 03-20-2022 Tobacco smoking stat [facility] Unknown if ever smoked [facility] Work Phone: Start: 03-29-2021 Cigarettes [facility] Work Phone: Start: 2005 Sex Assigned At Male [facility] Work Phone: Evaluation note Note Date & Type Note Facility Evaluation note No assessment information availa ble [facility] Work Phone: Hospital Discharge instructions Note Date & Type Note Facility Hospital Discharge instructions Additional Instructions Please return at any time for further evaluation and treatment. If you develop pain, fevers, pain with swallowing, trouble breathing, overall weakness or any other concerns please return. [facility] Work Phone: Summary Purpose Family History No Family History Records FoundNo Family History Records Found Advance Directives No Advanced Directives Records Found Advance Directive Response Recorded Date/ Time Living Will No March 20, 2022 1 2:57am Power of Ship Joiner No March 20, 2022 12:57am Chief Complaint and Reason for Visit Chief Complaint SORE THROAT Additional Source Comments (unrecognized sect ion and content) No Status Records FoundNo Status Records Found INFORMATION SOURCE (unrecogn ized section and content) DATE CREATED AUTHOR 04/25/2018 [facility] DATE CREATED AUTHOR AUTHOR'S SYED FENG 03/23/2022 [facility] Goals (unrecognized section and content) Goals may be documented in a n alternate section FOR RECORDS PERTAINING TO PATIENTS WHO ARE OR HAVE BEEN ENROLLED IN A CHEMICAL DEPENDENCY/SUBSTANCEABUSE PROGRAM, SOME INFORMATION MAY BE OMITTED. This clinical summary was aggregated from multiple sources. Caution should be exercised in using it in the provision of clinical care. This summary normalizes information from multiple sources, and as a consequence, information in this document may materially change the coding, format and clinical context of patient data. In addition, data may be omitted in some cases. CLINICAL DECISIONS SHOULD BE BASED ON THE PRIMARY CLINICAL RECORDS. [employer]. provides no warranty or guarantee of the accuracy or completeness of information in this document.
[2025-04-30 00:33] LABS: Color, Urine Yellow (Yellow); Glucose, Dipstick Normal (Normal); Ketone-Dipstick Negative (Negative); Leukocyte Esterase-Dipstick 25 /ul (Negative); Nitrite-Dipstick Negative (Negative); Occult Blood-Urine 10 /ul (Negative); Protein-Dipstick 15 mg/dl (Negative); Urine Bilirubin Dipstick Negative (Negative); Urine Clarity Clear (Clear); Urine Urobilinogen Normal (Normal)
[2025-04-30 00:37] LABS: Anion Gap 10 (5-15); BUN 12 mg/dL (4-19); BUN/Creat Ratio 12.2 RATIO (10-20); Calcium,Total 9.2 mg/dL (7.6-11.0); Carbon Dioxide 24.3 mmol/L (21.0-32.0); Chloride 105 mmol/L (98-108); EST Glomerular Filtration Rate 109 (>60); Estimated Creatinine Clearance 110.46 ml/min (50-250); Glucose 86 mg/dL (70-99); Potassium 3.9 mmol/L (3.3-5.1); Sodium Level 139 mmol/L (133-145)
[2025-04-30 00:39] LABS: Bacteria 2+ /hpf (None Seen); Mucous, Urine 1+ /hpf (<or=2+); Red Blood Cells-Urine 0-5 SEEN /hpf (0-5); Squamous Epithelial Cells - UA 0-5 SEEN /hpf (0-5); White Blood Cells 0-5 SEEN /hpf (0-5)
[2025-04-30 01:14] VITALS: BP 124/47; PULSE 74; RESP 18; TEMP 36.8; O2SAT 100
== END 2025-04-30 01:15 | disposition home or self-care (01) ==
PROVIDERS: Emergency Provider Emergency Medicine; Visit Provider Emergency Medicine
DX: R10.9 Unspecified abdominal pain (principal); R19.7 Diarrhea, unspecified; R11.0 Nausea; F17.210 Nicotine dependence, cigarettes, uncomplicated; F17.290 Nicotine dependence, other tobacco product, uncomplicated
CPT/HCPCS: 80048; 81001; 85025; 96361; 96374; 99283; A4216; J2405

== ENCOUNTER 2025-06-16 20:27 | Emergency (ER) | payer OTHER, SELFPAY ==
[2025-06-16 20:27] VITALS: BP 119/73; PULSE 83; RESP 18; TEMP 37.1; O2SAT 99; BMI 20.2
--- NOTE | 2025-06-16 21:02 | EKG12_ITS ---
Test Reason : DIZZINESS Blood Pressure : */* mmHG Vent. Rate : 64 BPM Atrial Rate : 64 BPM P-R Int : 146 ms QRS Dur : 102 ms QT Int : 394 ms P-R-T Axes : 48 54 54 degrees QTcB Int : 406 ms Normal sinus rhythm with sinus arrhythmia RSR' or QR pattern in V1 suggests right ventricular conduction delay Borderline ECG Confirmed by Deni Beckford ([id number]), video effects editor NARA ANDERSON ([id number]) on 06/17/2025 11:44:02 AM Referred By: Confirmed By: Deni Beckford
--- NOTE | 2025-06-16 21:02 | EKG12_ITS ---
Test Reason : DIZZINESS Blood Pressure : */* mmHG Vent. Rate : 64 BPM Atrial Rate : 64 BPM P-R Int : 146 ms QRS Dur : 102 ms QT Int : 394 ms P-R-T Axes : 48 54 54 degrees QTcB Int : 406 ms Normal sinus rhythm with sinus arrhythmia RSR' or QR pattern in V1 suggests right ventricular conduction delay Borderline ECG Confirmed by Deni Beckford ([id number]), photograph editor NARA ANDERSON ([id number]) on 06/17/2025 11:44:02 AM Referred By: Confirmed By: Deni Beckford
--- NOTE | 2025-06-16 21:20 | EX.ED.DYSGE1 ---
HPI History of Present Illness Chief Complaint: Dizziness Narrative Narrative: Chief complaint and HPI: 20-year-old male with no significant past medical history presents for evaluation of lightheadedness and nausea. Patient states he was at work in which he felt warm and then developed lightheadedness, nausea, abdominal pain. States the episode lasted several minutes. Denies any headache, syncope, chest pain, shortness of breath, vomiting. States he has been eating and drinking well. Patient states symptoms have resolved except for mild nausea and abdominal pain. Review of systems: See HPI Medications: As listed on the chart Allergies: As listed on the chart PFSH: Per chart Vital signs: As listed on the chart. Reviewed. Physical exam: Gen: A&O x3, NAD Head: Normocephalic, atraumatic Eyes: No sclera icterus, conjunctiva clear, PERRL, EOMI ENT: Moist mucous membranes Neck: Trachea midline, No JVD CV: RRR, no murmurs, no peripheral edema Resp: Lungs CTA BL, no w/r/c GI: Abd soft, non-distended, non-tender, no r/r/g Musc: Full ROM, no deformity Skin: Warm, dry Neuro: Alert, oriented, grossly intact, sensation intact Psych: Cooperative, appropriate mood and affect [facility] Medical History Depression Home Medications ?Medication ?Instructions ?Recorded ?Last Taken ?Type ondansetron 4 mg disintegrating 4 mg PO Q8H PRN PRN Nausea #10 tabs 04/30/25 Unknown Rx tablet Allergy/AdvReac Type Severity Reaction Status Date / Time No Known Allergies Allergy Verified 06/16/25 20:28 Social History Smoking Status: Current every day smoker tobacco type: cigarettes and e-cigarettes EXAM Physical Exam Const Vital Signs: 06/16/25 20:27 06/16/25 22:27 06/16/25 22:39 Temperature 98.7 F Temperature Source Oral Pulse Rate 83 87 Pulse Rate [Lying] 67 Pulse Rate [Sitting (for 1 minute prior to obtaining)] 83 Pulse Rate [Standing (for 1 minute prior to obtaining)] 86 Respiratory Rate 18 18 Blood Pressure 119/73 105/58 L Blood Pressure [Lying] 97/69 Blood Pressure [Sitting (for 1 minute prior to obtaining)] 115/68 Blood Pressure [Standing (for 1 minute prior to obtaining)] 105/58 L Blood Pressure Mean 88 73 Blood Pressure Mean [Lying] 78 Blood Pressure Mean [Sitting (for 1 minute prior to obtaining)] 83 Blood Pressure Mean [Standing (for 1 minute prior to obtaining)] 73 Pulse Ox 99 Oxygen Delivery Method Room Air MDM MDM MDM Narrative Medical decision making narrative: 20-year-old male with no significant past medical history presents for evaluation of lightheadedness and nausea. Patient states he was at work in which he felt warm and then developed lightheadedness, nausea, abdominal pain. States the episode lasted several minutes. Denies any headache, syncope, chest pain, shortness of breath, vomiting. States he has been eating and drinking well. Patient states symptoms have resolved except for nausea and mild abdominal pain. On presentation, patient in no acute distress. Vital stable. Physical exam unremarkable. Differential diagnosis includes but is not limited to heat exhaustion, orthostatic hypotension, presyncope, dehydration, arrhythmia, suspect less likely intra-abdominal pathology, UTI . P.o. Zofran ordered. Basic labs ordered. I do not think any laboratory workup is needed. Patient abdominal exam is benign therefore CT abdomen pelvis will be ordered. CBC without leukocytosis or anemia. CMP unremarkable. Lipase unremarkable. UA negative for UTI and ketones. On reevaluation, patient states his symptoms have resolved. Orthostatic vital signs had yet to be performed so we did perform these. They were positive in which the patient's blood pressure did decrease with standing however he was completely asymptomatic during the event. He ambulated without difficulty. He is eating and drinking well. No clinical signs of dehydration. Educated to keep up with his fluid intake over the next 24 hours. Follow-up with primary care physician. Return back to the ED if symptoms change or worsen. He confirmed understanding the plan. Patient for discharge home. EKG: Interpreted by me/EM physician: EKG shows sinus arrhythmia. heart rate 64 Impression: 1. Presyncope, orthostatic hypotension versus heat exhaustion Lab Data Labs: Laboratory Results - last 24 hr 06/16/25 06/16/25 21:25 22:15 WBC 7.0 RBC 4.54 L Hgb 13.0 Hct 37.4 L MCV 82.4 MCH 28.6 MCHC 34.8 RDW Std Deviation 37.6 RDW Coeff of Renae 12.4 Plt Count 179 MPV 10.4 Immature Gran % (Auto) 0.100 Neut % (Auto) 48.9 Lymph % (Auto) 37.6 Bath % (Auto) 10.1 H Eos % (Auto) 2.9 Baso % (Auto) 0.4 Absolute Neuts (auto) 3.4 Absolute Lymphs (auto) 2.62 Nucleated RBC % 0 Sodium 139 Potassium 3.9 Chloride 105 Carbon Dioxide 23.3 Anion Gap 11 BUN 12 Creatinine 0.92 Estim Creat Clear Calc 120.65 Est GFR (MDRD) Non-Af 120 BUN/Creatinine Ratio 13.3 Glucose 90 Calcium 9.3 Total Bilirubin 0.38 AST 25 ALT 28 Alkaline Phosphatase 98 Total Protein 6.3 Albumin 4.4 Globulin 1.9 L Albumin/Globulin Ratio 2.3 Lipase 26 Urine Color Yellow Urine Clarity Clear Urine pH 7.0 Ur Specific [employer] 1.010 Urine Protein Negative Urine Glucose (UA) Normal Urine Ketones Negative Urine Occult Blood Negative Urine Nitrite Negative Urine Bilirubin Negative Urine Urobilinogen Normal Ur Leukocyte Esterase Negative Discharge Plan Triage Chief Complaint: Dizziness ED Provider: Vaibhav Ca Dx/Rx/DC Orders Prescriptions: No Action ondansetron 4 mg tablet,disintegrating 4 mg PO Q8H PRN PRN (Reason: Nausea) Qty: 10 0RF Primary Care Provider: Care Physician,No Primary Referrals: Care Physician,No Primary [Primary Care Provider] - Print Language: [place]
[2025-06-16 21:56] LABS: Hematocrit 37.4 % (40-54); Hemoglobin 13.0 g/dL (13.0-16.5); Immature Granulocytes Count 0.010 X10^3/uL (0.0-0.0); Mean Corp Hgb Conc 34.8 g/dL (32-36); Mean Corpuscular Volume 82.4 fL (80-94); Mean Platelet Vol. 10.4 fl (6.2-12.0); NRBC Flagged by Analyzer 0 % (0-5); Platelet Count 179 K/mm3 (150-450); RBC Distribution Width CV 12.4 % (11.6-14.6); RBC Distribution Width SD 37.6 fl (35.1-43.9); Red Blood Count 4.54 M/mm3 (4.6-6.2); White Blood Count 7.0 K/mm3 (4.4-11.0)
[2025-06-16 22:23] LABS: AST(SGOT) 25 U/L (<=37); Alanine Aminotransfer ALT/SGPT 28 U/L (<=46); Albumin, Serum 4.4 g/dL (3.5-5.0); Alkaline Phosphatase 98 U/L (40-129); Anion Gap 11 (5-15); BUN 12 mg/dL (4-19); BUN/Creat Ratio 13.3 RATIO (10-20); Calcium,Total 9.3 mg/dL (7.6-11.0); Carbon Dioxide 23.3 mmol/L (21.0-32.0); Chloride 105 mmol/L (98-108); Estimated Creatinine Clearance 120.65 ml/min (50-250); Globulin 1.9 g/dL (2.2-4.2); Glucose 90 mg/dL (70-99); Lipase 26 U/L (13-75); Potassium 3.9 mmol/L (3.3-5.1)
[2025-06-16 22:27] VITALS: BP 105/58; PULSE 87; RESP 18
[2025-06-16 22:32] LABS: Color, Urine Yellow (Yellow); Glucose, Dipstick Normal (Normal); Ketone-Dipstick Negative (Negative); Leukocyte Esterase-Dipstick Negative /ul (Negative); Nitrite-Dipstick Negative (Negative); Occult Blood-Urine Negative /ul (Negative); Protein-Dipstick Negative (Negative); Specific Gravity, Urine 1.010 (1.002-1.030); Urine Bilirubin Dipstick Negative (Negative)
[2025-06-16 22:39] VITALS: BP 105/58; BP 115/68; BP 97/69; PULSE 67; PULSE 83; PULSE 86
[2025-06-16 22:56] VITALS: BP 107/60; PULSE 63; RESP 18; TEMP 36.8; O2SAT 96
[2025-06-16 22:57] LABS: Mucous, Urine RARE /hpf (<or=2+); Red Blood Cells-Urine 0-5 SEEN /hpf (0-5); Squamous Epithelial Cells - UA 0-5 SEEN /hpf (0-5)
== END 2025-06-16 22:57 | disposition home or self-care (01) ==
PROVIDERS: Emergency Provider Surgery; Visit Provider Surgery
DX: R42 Dizziness and giddiness (principal); R10.9 Unspecified abdominal pain; R11.0 Nausea; F17.210 Nicotine dependence, cigarettes, uncomplicated; F17.290 Nicotine dependence, other tobacco product, uncomplicated
CPT/HCPCS: 80053; 81001; 83690; 85025; 93005; 99283; A4216